=== PATIENT | female | born 1940 | race Caucasian/White ===

== ENCOUNTER → 2021-01-12 11:50 | Outpatient (CLI) | payer MEDICARE, SELFPAY ==
--- NOTE | ~2021-01-12 | US_ITS ---
EXAMINATION: US renal BI DATE: 01/12/2021 12:11 INDICATION: Tubulointerstitial nephritis. Left flank pain. Low-grade fever. TECHNIQUE: Multiple ultrasound grayscale images of the kidneys were obtained. COMPARISON: CT dated 05/23/2009 FINDINGS: The right kidney measures 7.6 x 4.1 x 4.9 cm. The left kidney measures 7.8 x 4.6 x 4.1 cm. The kidney s demonstrate normal echogenicity. Bilateral anechoic renal cysts measuring 1.[address] on the right and 8 mm on the left. There is no hydronephrosis in either kidney. No stones identi fied. The bladder is normal. IMPRESSION: 1. Bilateral renal cysts. Otherwise normal kidneys without hydronephrosis. Reviewed, dictated and finalized at location B.
== END ==
PROVIDERS: PCP Family Medicine; Visit Provider Family Medicine
DX: N12 Tubulo-interstitial nephritis, not specified as acute or chronic (principal); N28.1 Cyst of kidney, acquired
CPT/HCPCS: 76775

== ENCOUNTER → 2022-02-26 09:16 | Outpatient (CLI) | payer MEDICARE, SELFPAY ==
--- NOTE | ~2022-02-26 | US_ITS ---
EXAMINATION: US abdomen limited DATE: 02/26/2022 09:35 INDICATION: Nausea and vomiting, elevated liver enzymes TECHNIQUE: Multiple grayscale and Doppler ultrasound images of the abdomen were obtained. COMPARISON: None available FINDINGS: The head and body of the pancreas are normal. The pancreatic tail is obscured by bowel gas. The liver is normal with normal echogenicity and echotexture. No surface nodularity. Normal hepatope portillo flow in the main portal vein. The gallbladder is surgically absent. The normal common bile duct m easures 5 mm. IMPRESSION: 1. No sonographic correlate for the patient's symptoms. Reviewed, dictated and finalized at location A.
== END ==
PROVIDERS: PCP Physician Assistant; Visit Provider Physician Assistant
DX: R11.2 Nausea with vomiting, unspecified (principal)
CPT/HCPCS: 76705

== ENCOUNTER 2022-04-01 09:01 | Outpatient (CLI) | payer MEDICARE, SELFPAY ==
--- NOTE | ~2022-04-01 | NM_ITS ---
EXAMINATION: NM bone scan whole body DATE: 04/01/2022 12:53 INDICATION: Osteitis deformans of unspecified bone. Elevated alkaline phosphatase. TECHNIQUE: 26.4 mCi Tc-99m HDP was administered intravenously. Delayed whole-body scintigrams were o btained. COMPARISON: Chest 2 views 10/09/2016, CT abdomen and pelvis 05/23/2009 FINDINGS: There is joint-centered and disc-centered increased activity in the lumbar spine correlatin g with spondylosis by CT. There is increased activity in left mid foot without radiographic compariso n, likely osteoarthritis. IMPRESSION: 1. No evidence of malignancy. Reviewed, dictated and finalized at location A.
== END 2022-04-01 09:02 | disposition home or self-care (01) ==
PROVIDERS: PCP Physician Assistant; Visit Provider Family Medicine
DX: M88.9 Osteitis deformans of unspecified bone (principal)
CPT/HCPCS: 78306; A9561

== ENCOUNTER 2023-12-22 09:26 | Outpatient (CLI) | payer MEDICARE, SELFPAY ==
[2023-12-22 17:55] LABS: Anion Gap 7 mmol/L (8-16); Blood Urea Nitrogen 17 mg/dL (7-17); Calcium 11.4 mg/dL (8.4-10.2); Carbon Dioxide 29 mmol/L (22-30); Chloride 98 mmol/L (98-107); Estimated Glomerular Filt Rate 53; Glucose 84 mg/dL (65-110); Potassium 4.5 mmol/L (3.4-5.0); Sodium 134 mmol/L (137-145)
[2023-12-22 18:03] LABS: NT Pro B Type Natriuretic Pept 210 pg/mL (19.9-100)
== END 2023-12-22 09:27 | disposition home or self-care (01) ==
PROVIDERS: PCP Family Medicine; Visit Provider Nurse Practitioner Family
DX: R06.02 Shortness of breath (principal); R60.9 Edema, unspecified
CPT/HCPCS: 36415; 80048; 83880

== ENCOUNTER 2024-01-01 14:16 | Outpatient (CLI) | payer MEDICARE, SELFPAY ==
--- NOTE | ~2024-01-01 | XR_ITS ---
EXAMINATION: XR chest 2V DATE: 01/01/2024 15:49 INDICATION: Shortness of breath. TECHNIQUE: Frontal and lateral views of the chest were obtained. COMPARISON: Chest 2 views 10/09/2016 FINDINGS: There is no pneumonia, pleural effusion, or pneumothorax. The heart size is normal. Surgica l clips in the right upper quadrant are likely from cholecystectomy. IMPRESSION: 1. No acute cardiopulmonary disease. Reviewed, dictated and finalized at location E. 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
== END 2024-01-01 14:17 ==
PROVIDERS: PCP Family Medicine; Visit Provider Family Medicine
DX: R06.02 Shortness of breath (principal)
CPT/HCPCS: 71046

== ENCOUNTER 2024-01-02 13:46 | Outpatient (CLI) | payer MEDICARE, SELFPAY ==
--- NOTE | 2024-01-02 13:49 | ECHO_ITS ---
Patient Info Name: Shena Ferreira Age: 83 years : 1940 Gender: Female Ht: 60 in Wt: 133 lbs BSA: 1.61 m2 HR: 79 bpm BP: 131 / 79 mmHg Technical Quality: Good Exam Date: 01/02/2024 1:57 PM Exam Location: Echo Lab Patient Status: Outpatient Admit Date: 01/02/2024 Staff Ordering Physician: Rema Srinivasan Healthcare Account Manager: Lorena Butler RDCS Attending Provider: Rema Srinivasan Referring Physician: Zarina WEISS; Exam Type: CA echo doppler color flow Study Info Indications R60.9 - Edema, unspecified Complete two-dimensional, color flow and Doppler transthoracic echocardiogram is performed. Strain analysis performed. Summary 1. Complete two-dimensional, color flow and Doppler transthoracic echocardiogram is performed. 2. Left ventricular chamber dimension is normal. 3. Left ventricular systolic function is hyperdynamic, estimated at >70%. 4. The left ventricular diastolic function is grade I diastolic dysfunction. 5. E/e' 13 is mildly elevated. 6. Global longitudinal strain is normal at -17.6%. 7. There is moderate aortic valve sclerosis. 8. The mitral valve has moderately calcified annulus. 9. No pulmonary hypertension, estimated pulmonary arterial systolic pressure is 33 mmHg. Left Ventricle E/e' 13 is mildly elevated. Global longitudinal strain is normal at -17.6%. Left ventricular chamber dimension is normal. Left ventricular systolic function is hyperdynamic, estimated at >70%. The left ventricular diastolic function is grade I diastolic dysfunction. Right Ventricle Right ventricular systolic function is normal and with normal TAPSE 2.9 cm. Right ventricular chamber dimension is normal. Left Atria Left atrial chamber dimension is normal. Right Atria Right atrial chamber dimension is normal. Aortic Valve The aortic valve is trileaflet. There is moderate aortic valve sclerosis. There is no aortic valve stenosis. There is no aortic valve regurgitation. Pulmonic Valve There is no pulmonic regurgitation. Mitral Valve The mitral valve has moderately calcified annulus. There is no mitral valve stenosis. There is no mitral valve regurgitation. Tricuspid Valve There is no tricuspid valve regurgitation. No pulmonary hypertension, estimated pulmonary arterial systolic pressure is 33 mmHg. Pericardium/Pleural There is no pericardial effusion. Inferior Vena Cava Normal inferior vena cava with >50% collapse upon inspiration consistent with normal right atrial pressure, 5 mmHg. Aorta The aortic root size at the sinus of Valsalva is normal. Left Ventricular Outflow Tract Name Value Normal LVOT 2D LVOT Diameter 1.9 cm LVOT Doppler LVOT Peak Gradient 8 mmHg LVOT Mean Gradient 5 mmHg LVOT VTI 31 cm LVOT VTI/AV VTI Ratio 0.8 LVOT Stroke Volume 87 ml LVOT CO 6.3 l/min LVOT CI 3.9 l/min/m2 Pulmonic Valve Name Value Normal ---------
== END 2024-01-02 13:47 | disposition home or self-care (01) ==
PROVIDERS: PCP Family Medicine; Visit Provider Nurse Practitioner Family
DX: R93.1 Abnormal findings on diagnostic imaging of heart and coronary circulation (principal); I35.8 Other nonrheumatic aortic valve disorders; I34.81 Nonrheumatic mitral (valve) annulus calcification; R06.02 Shortness of breath
CPT/HCPCS: 93306

== ENCOUNTER 2024-01-05 06:41 | Outpatient (CLI) | payer MEDICARE, SELFPAY ==
--- NOTE | ~2024-01-05 | CT_ITS ---
CT of the Abdomen and Pelvis: Indication: Hypercalcemia Technique: 2.5 mm axial scans were obtained through the abdomen and pelvis following intravenous adm inistration of 100 cc of Omnipaque 350. Dose reduction technique was used on this scan by utilizing a utomated exposure control and iterative reconstruction technique. The dose-length product (DLP) was 2 51.11 mGy-cm. Findings: Scans through the lung bases are unremarkable. There is intrahepatic and extra hepatic biliary dilatation, presumably related to prior cholecystecto my. No obstructing mass evident. The spleen, pancreas, adrenals and kidneys are within normal limits. There are atherosclerotic calcifications of the aorta. No lymphadenopathy. No bowel obstruction or bowel wall thickening. There is no evidence to suggest acute appendicitis. Images through the pelvis were performed. Urinary bladder unremarkable. No pelvic mass seen. No ascit es. Impression: No acute abnormality. Intrahepatic and extra hepatic biliary dilatation is most likely related to prior cholecystectomy. Co rrelate clinically. No obstructing mass evident. Reviewed, dictated and finalized at location . Impression: No acute abnormality. Intrahepatic and extra hepatic biliary dilatation is most likely related to lexie or cholecystectomy. Correlate clinically. No obstructing mass evident.
== END 2024-01-05 06:42 | disposition home or self-care (01) ==
PROVIDERS: PCP Family Medicine; Visit Provider Family Medicine
DX: R60.0 Localized edema (principal); E83.52 Hypercalcemia; R74.8 Abnormal levels of other serum enzymes
CPT/HCPCS: 74177; Q9967

== ENCOUNTER 2024-09-07 12:00 | Outpatient (CLI) | payer MEDICARE, SELFPAY ==
--- NOTE | ~2024-09-07 | XR_ITS ---
EXAMINATION: XR hip RT 2V w AP pelvis DATE: 09/07/2024 12:28 INDICATION: Right hip pain. TECHNIQUE: An anteroposterior view of the pelvis and 2 views of right hip were obtained. COMPARISON: None. FINDINGS: There is lumbar levoscoliosis and severe spondylosis. No fracture. There is mild osteoarthr itis of the hips. Osteitis pubis is noted. IMPRESSION: 1. Mild osteoarthritis of the hips. 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
== END 2024-09-07 12:01 | disposition home or self-care (01) ==
LOC: GOSHIMG 12:02
PROVIDERS: PCP Family Medicine; Visit Provider Nurse Practitioner Family
DX: M25.551 Pain in right hip (principal)
CPT/HCPCS: 73502

== ENCOUNTER 2024-11-15 09:32 | Outpatient (CLI) | payer MEDICARE, SELFPAY ==
--- NOTE | ~2024-11-15 | DEXA_ITS ---
Bone Density Report Name: DWIGHT PEREZ Age: 84 Sex: Female Ethnicity: White Date of : 1940 Indication: postmenopausal; screening for osteoporosis; height loss; Referring Provider: GEE JIMENEZ Study: Bone densitometry was performed. Exam Date: November 15, 2024 Accession number: [id number] Bone Density: Region BMD T-score Z-score Classification AP Spine(L1-L4) 1.083 0.3 3.1 Normal Femoral Neck (Left) 0.568 -2.5 -0.1 Osteoporosis Total Hip (Left) 0.738 -1.7 0.6 Osteopenia Femoral Neck (Right) 0.575 -2.5 0.0 Osteoporosis Total Hip (Right) 0.693 -2.0 0.2 Osteopenia Total Hip Mean 0.715 -1.9 0.4 Osteopenia World Health Organization criteria for BMD impression classify patients as: Normal (T-score at or above -1.0), Osteopenia (T-score between -1.0 and -2.5), or Osteoporosis (T-score at or below -2.5). 10-year Fracture Risk: FRAX not reported because: Some T-score for Spine Total or Hip Total or Femoral Neck at or below -2.5 Clinical Information Provided by Patient: Has the following medical conditions: copd Patient maximum height was 64 Menopause Age: 55 Onset of menses at age 14 Number of children 2 Impression: The patient has osteoporosis, based on the Left Femoral Neck T-score. Discussion: INCREASED RISK OF FRACTURE. BONE DENSITY IS UNDESIRABLY LOW AT ONE OR MORE SKELETAL SITES, CONSISTENT WITH POSTMENOPAUSAL OSTEOPOROSIS. This patient's lowest T-score meets the World Health Organization's (WHO) criteria for osteoporosis at one or more sites (T-score -2.5 or below). In untreated patients, the risk of osteoporotic fracture increases approximately two-fold for each 1.0 SD decrease in T-score. Low bone density is not the only risk factor for fracture; also consider factors such as patient's age, frailty or poor health, risk of falling, risk of injury, previous osteoporotic fracture, family history of osteoporosis, cigarette smoking, low body weight, etc. Not everyone with low bone mineral density has osteoporosis; osteomalacia and other metabolic bone disorders should also be considered. Patients who have osteoporosis should be evaluated for specific diseases and conditions (secondary causes) that may cause or contribute to bone loss. The [place] Association [employer] Clinical Endocrinologists (AACE) and National Osteoporosis Foundation (NOF) recommend pharmacologic intervention for all postmenopausal women whose T-score is in this range. The patient should follow a healthful lifestyle (good nutrition with adequate calcium and vitamin D, and appropriate weight-bearing exercise). Follow-Up: Consider a repeat BMD and Vertebral Fracture Assessment (VFA) exam in 2 years or sooner if medically necessary, to reassess this patient's status. Reported by: DARION on 11/15/2024 10:09:00 AM. Reviewed, dictated and finalized at location AKartik COELHO
== END 2024-11-15 09:33 | disposition home or self-care (01) ==
LOC: ANHIMG 09:36
PROVIDERS: PCP Family Medicine; Visit Provider Student in an Organized Health Care Education/Training Program
DX: M81.0 Age-related osteoporosis without current pathological fracture (principal); M85.89 Other specified disorders of bone density and structure, multiple sites; N95.9 Unspecified menopausal and perimenopausal disorder
CPT/HCPCS: 77080

== ENCOUNTER 2024-12-06 08:06 | Outpatient (CLI) | payer MEDICARE, SELFPAY ==
--- NOTE | ~2024-12-06 | MM_ITS ---
EXAMINATION: MM screening mor BI w summer HISTORY: Screening TECHNIQUE: Craniocaudal and mediolateral oblique 3-D tomosynthesis images were obtained and synthetic 2-D images were generated. CAD analysis was submitted and interpreted. COMPARISON: Comparison to multiple prior studies sequentially, with oldest reviewed study dated 05/21. BREAST PARENCHYMAL COMPOSITION: Dense: The breasts are heterogeneously dense, which may obscure small masses FINDINGS: There is no evidence of suspicious mass, calcification, or architectural distortion to sugg est malignancy in either breast. There has been no suspicious interval change. IMPRESSION: 1. No mammographic evidence of malignancy. 2. Recommend routine screening mammography in one year. BI-RADS Category 1: Negative Reviewed, dictated and finalized at location B. 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
--- OUTSIDE RECORDS SUMMARY | 2024-12-06 08:11 | XMS_ITS | Continuity of Care Document ---
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 e [employer] [address] [place] [address] Shena Ferreira Self [address] [place] [address] Amrita Cerda Emergency Contact [phone] [place] [address] Unavailable Rob Ferreira Emergency Contact [address] [place] [address] Summary Purpose Consult/Referral Allergies, Adverse Reactions, Alerts No Known Allergies Medications No Known Medications Conditions/Problems Problem/Diagnosis Awareness of Diagnosis Code (ICD-10) Onset Date (Start Date) Resolution Date (End Date) Status Source Comments CERVICALGIA M54.2 09/23/20 16 Active Kvng Cid Procedures No Known Procedures
== END 2024-12-06 08:07 | disposition home or self-care (01) ==
LOC: ANHIMG 08:07
PROVIDERS: PCP Family Medicine; Visit Provider Student in an Organized Health Care Education/Training Program
DX: Z12.31 Encounter for screening mammogram for malignant neoplasm of breast (principal)
CPT/HCPCS: 77063; 77067

== ENCOUNTER 2025-08-11 10:33 | Outpatient (CLI) | payer MEDICARE, SELFPAY ==
--- NOTE | ~2025-08-11 | MR_ITS ---
EXAMINATION: MR brain/brain stem wo con DATE: 08/11/2025 11:18 INDICATION: Ataxia, unspecified. TECHNIQUE: Magnetic resonance imaging (MRI) of the brain and brainstem was performed without intravenous contrast. COMPARISON: None. FINDINGS: There are scattered areas of nonspecific increased T2-weighted signal intensity in the cerebral white matter. There is no intracranial hemorrhage, acute infarction, or abnormal intracranial mass lesion. The ventricles are normal in size. There are likely changes of ocular lens replacement surgeries. There is mild mucosal thickening in the ethmoid sinuses. The mastoid air cells are normal. IMPRESSION: 1. Moderate nonspecific cerebral white matter disease, which likely represents chronic small vessel ischemic disease. Reviewed, dictated and finalized at location E.
== END 2025-08-11 10:34 | disposition home or self-care (01) ==
LOC: MICIMG 10:34
PROVIDERS: PCP Family Medicine; Visit Provider Family Medicine
DX: R27.0 Ataxia, unspecified (principal); R90.82 White matter disease, unspecified
CPT/HCPCS: 70551

== ENCOUNTER 2025-09-12 13:40 | Emergency (ER) | payer MEDICARE, SELFPAY ==
[2025-09-12] VITALS (18 sets, daily range): BP systolic 102–156; BP diastolic 49–68; PULSE 62–82; RESP 12–18; TEMP 36.6; O2SAT 99–100
--- NOTE | ~2025-09-12 | CT_ITS ---
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 Technique: Axial images obtained of the brain without contrast. One or more of the following dose reduction techniques were used: automated exposure control, adjustment of the mA and/or kV according to patient size, use of iterative reconstruction technique. Findings: No acute infarct or parenchymal hemorrhage. No abnormal mass or mass effect. No midline shift. No extra-axial fluid collections. No hydrocephalus. Mastoid air cells unremarkable. Sinuses and orbits unremarkable. No acute fracture. No significant facial or scalp soft tissue swelling evident. No radiopaque foreign body is seen. Impression: 1.No acute intracranial abnormality. Reviewed, dictated and finalized at location P. TCHER LEVELER OPERATOR HELPER Impression: 1.No acute intracranial abnormality.
--- NOTE | ~2025-09-12 | XR_ITS ---
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 Technique: 2 views obtained. Findings: The lungs are clear, no effusion. No pneumothorax. Heart is normal size. Mediastinal and hilar contours are within normal limits. Bony thorax no acute abnormality. Impression: No acute cardiopulmonary abnormality. Reviewed, dictated and finalized at location P. OR DATABASE ADMINISTRATOR Impression: No acute cardiopulmonary abnormality.
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
--- NOTE | 2025-09-12 16:17 | PC.NURSE ---
Addendum entered by Yvette Dumont RN 09/12/25 17:34: pt stated she did not feel well and was dizzy after standing to examine back injury. pt was seating in wheelchair at that time. Pts left arm dropped from wheelchair arm rest and pts head fell back. This RN support pts head. Pt lost control of bladder and started foaming at the mouth. pt was unarousable during seizure. Original Note: pt had seizure at 1612. seizure lasted a minute and a half. vital remained stable during seizure. pt soiled herself during seizure. pt is moving to monitor room. pt A&Ox4.
--- NOTE | 2025-09-12 16:20 | ECG_ITS ---
Test Date: 2025-09-12 16:29:26 Measurements Intervals [place] Rate: 62 P: 53 DE: 168 QRS: 35 QRSD: 82 T: 47 QT: 396 QTc: 405 Interpretive Statements SINUS RHYTHM ANTEROSEPTAL MYOCARDIAL INFARCTION , OF INDETERMINATE AGE Electronically Signed On 09-12-2025 20:04:15 ASSIGNER by Cristiano Grossman D.O
[2025-09-12 17:22] LABS: Hematocrit 35.4 % (37.0-47.0); Hemoglobin 11.6 g/dL (12.0-15.0); Mean Corpuscular HGB Conc 32.8 g/dl (32-36); Mean Corpuscular Hemoglobin 29.7 pg (26-34); Mean Corpuscular Volume 90.5 fl (80-100); Platelet Count Result 293 k/mm3 (150-375); Red Blood Count 3.91 M/mm3 (4.2-5.4); White Blood Count 23.8 K/mm3 (4.5-10.0)
[2025-09-12 17:34] LABS: Alanine Aminotransferase 14 U/L (6-35); Albumin Level 4.0 g/dL (3.5-5.1); Alkaline Phosphatase 94 U/L (38-126); Anion Gap 4 mmol/L (4-12); Aspartate Amino Transferase 22 U/L (14-36); Bilirubin,Total 0.8 mg/dL (0.2-1.3); Blood Urea Nitrogen 13 mg/dL (7-17); Calcium 10.1 mg/dL (8.4-10.2); Carbon Dioxide 28 mmol/L (22-30); Chloride 99 mmol/L (98-107); Estimated CRCL calculation 27 ml/min; Estimated Glomerular Filt Rate 53; Glucose 127 mg/dL (65-110); Potassium 4.9 mmol/L (3.4-5.0); Sodium 131 mmol/L (137-145); Total Protein 6.3 g/dL (6.3-8.2)
[2025-09-12 18:20] LABS: Band Neutrophils Percent 1 % (0-6); Lymphocytes Absolute Manual 1.66 K/mm3 (1.1-4.5); Lymphocytes Percent Manual 7.0 % (18-44); Monocytes Absolute Manual 1.42 K/mm3 (0.1-0.90); Monocytes Percent Manual 6 % (3-9); Neutrophils Absolute Manual 20.70 K/mm3 (1.3-6.7); Neutrophils Percent Manual 86 % (46-73); Schistocytes None Seen; Total Cells Counted 100
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
[2025-09-12] MEDS: TETANUS,DIPHTHERIA,AC PERTUSSIS ADULT (0.5 ML) BOOSTRIX IM (21:30)
[2025-09-12] MEDS: levETIRAcetam 1000MG/NACL100ML 1,000 MG/100 ML BAG 400 MG IVPB (21:30)
[2025-09-12] MEDS: SODIUM CHLORIDE 0.9% IV 1,000 ML 500 ML IV CONT (21:58)
[2025-09-12 22:04] LABS: Add Urine Microscopic? YES; Appearance Urine Cloudy (Clear); Glucose Urine UA Negative (Negative); Leukocyte Esterase Ur Negative LEU/UL (Negative); Nitrate Urine Negative (Negative); Specific Grav Ur 1.039 (1.001-1.035)
== END 2025-09-12 22:47 | disposition short-term general hospital (02) ==
PROVIDERS: Emergency Provider Emergency Medicine; PCP Family Medicine
DX: S30.0XXA Contusion of lower back and pelvis, initial encounter (principal); R56.9 Unspecified convulsions; Z23 Encounter for immunization; I10 Essential (primary) hypertension; E78.5 Hyperlipidemia, unspecified; J44.9 Chronic obstructive pulmonary disease, unspecified; M81.0 Age-related osteoporosis without current pathological fracture; Z87.440 Personal history of urinary (tract) infections; Z90.49 Acquired absence of other specified parts of digestive tract; Z87.891 Personal history of nicotine dependence; Z90.710 Acquired absence of both cervix and uterus; V03.00XA Pedestrian on foot injured in collision with car, pick-up truck or van in nontraffic accident, initial encounter; M85.88 Other specified disorders of bone density and structure, other site
CPT/HCPCS: 36415; 70450; 71046; 71260; 72131; 73502; 74177; 80053; 81001; 85025; 90471; 90715; 93005; 96365; 99285; J1953; J7030; Q9967